=== PATIENT | female | born 1955 | race Two or more races ===

== ENCOUNTER 2024-11-22 13:31 | Outpatient (OUT) | payer MEDICARE, OTHER, SELFPAY ==
--- OUTSIDE RECORDS SUMMARY | 2024-11-22 13:38 | XMS_ITS | Clinical Summary ---
Author Organization [facility] Address [address] [place] [address] Phone Care Team Providers Care Recruitment Internship Name Role Phone June, Kishan Mcpherson MD Primary Care Provid er Social History Tobacco Use Types Packs/Day Years Used Date Smoking Tobacco: Never Assessed Comments Unknown Sex and Gender Information Value Date Recorded Sex Assigned at Not on file Legal Sex Female 5:54 PM EST Gender Identity Not on file Sexual Orientation Not on file Plan of Treatment Not on file Care Teams Recruitment Internship Relationship Specialty Start Date End Date June, Kishan Mcpherson MD [address] [place] [address] PCP - General 01/31/10
--- OUTSIDE RECORDS SUMMARY | 2024-11-22 13:38 | XMS_ITS | Encounter Summary ---
Author Organization [facility] Address [address] [place] [address] Care Team Providers Care Elevator Starter Name Role Phone Kathy Zimmerman DO Primary Care Provider [phone] Encounter Details Date Type Department Care Team (Late st Contact Info) Description 03/07/2024 Orders Only [facility] [address] [id number] Grant Parada DO [address] [address] Social History Tobacco Use Types Packs/Day Years Used Date Smoking Tobacco: Never Assessed Comments Unknown Sex and Gender Information Value Date Recorded Sex Assigned at Not on file Legal Sex Female 6:44 PM EDT Gender Identity Female 04/30/2022 6:44 PM EDT Sexual Orientation Not on file documented as of this encounter Plan of Treatment Not on file documented as of this encounter Procedures Procedure Name Priority Date/Time Associated Diagnosis Comments CT ABDOMEN & PELVIS WO Routine 03/07/2024 11:49 AM EST documented in this encounter Results * CT ABDOMEN & PELVIS WO (03/07/2024 11:49 AM EST) Anatomical Region Laterality Modality Radiographic Trudy ging Grant Parada DO IMG XR PROCEDURES Final Result documented in this encounter Visit Diagnoses Not on filedocumented in this encounter Care Teams Elevator Starter Relationship Specialty Start Date End Date Kathy Zimmerman DO PCP - General Family Medicine 02/22/24 documented as of this encounter
--- NOTE | 2024-11-22 14:00 | CA_ITS ---
Patient Name: DUSTY BROWN MR#: [id number] : 1955 Exam Date: 11/22/2024 Ordering Doctor: EDITH SUN ECHOCARDIOGRAM REPORT PROCEDURE: CA ECHO DOPPLER COMPLETE INDICATIONS: Bradycardia, fatigue, h/o breast cancer - mastectomy, chemotherapy and radiation COMPARISON: None. DESCRIPTION: COMPLETE ECHOCARDIOGRAM Real-time transthoracic echocardiography with 2D, M-mode, spectral and color flow Doppler performed. QUALITY: Technical quality was good. LEFT VENTRICLE: Normal chamber size. Normal left ventricular wall thickness. Normal systolic function. Estimated left ventricular ejection fraction is 55-60% LV EF: Normal left ventricular ejection fraction, (>55%). DIASTOLIC: Normal diastolic function. ATRIAL SEPTUM: Visually appears intact. LEFT ATRIUM: Mild dilatation. RIGHT ATRIUM: Normal chamber size. RIGHT VENTRICLE: Normal chamber size. Normal right ventricular systolic function. TRICUSPID VALVE: Normal mobility and thickness. No stenosis with trivial regurgitation. No evidence of pulmonary hypertension. RVSP 31 mmHg MITRAL VALVE: Normal mobility and thickness. No evidence of mitral valve stenosis. There is no mitral annular calcification. Mild mitral regurgitation. AORTIC VALVE: Normal trileaflet appearance. Normal leaflet mobility. No evidence of aortic valve stenosis. No aortic regurgitation. AORTIC ROOT: Normal diameter and appearance. PULMONIC VALVE: Normal thickness and mobility. No stenosis. Mild regurgitation. PERICARDIUM: No evidence of pericardial effusion. IVC: Collapses with inspiration. PLEURA: CONCLUSION: 1. Normal ventricular size and systolic function. LVEF is estimated at 55 to 60%. 2. Normal diastolic function. 3. Mild mitral and pulmonic regurgitation. 4. Normal right-sided pressures. Adult Echocardiography Procedure Report Left Ventricle LVEDD (3.7 - 5.6 cm): 4.25 cm LVESD (2.2 - 4.0 cm): 2.99 cm LVIVS thickness (0.6 - 1.2 cm): 0.74 cm LVPW thickness (0.5 - 1.0 cm): 0.60 cm e': 0.10 m/s E - e': 9.06 LVOT Max Gradient: 3.41 mm[Hg] LVOT Area (cm2): 0.92 m/s Peak Velocity (LVOT): 0.92 m/s Mean Velocity (LVOT): 0.53 m/s LVOT Diameter 1.74 cm Left Ventricular Ejection Fraction: 55-60 % Left Atrium LA Volume Index (2D A2C): 32.72 ml/m2 Left Atrium Systolic Dimension: 3.39 cm Mitral Valve MV E to A Ratio: 1.37 Mitral Valve A-Wave Peak Velocity: 0.64 m/s Mitral Valve E-Wave Peak Velocity: 0.88 m/s Right Ventricle Aorta AO Root Diam: 2.41 cm Aortic Valve AoV Area (Peak Ryan): 2.02 cm2, 2.02 cm2 AoV Area (VTI): 1.96 cm2, 1.96 cm2 Peak Velocity(Antegrade Flow): 1.09 m/s Peak Gradient(Antegrade Flow): 4.74 mm[Hg] Mean Velocity(Antegrade Flow): 0.67 m/s Mean Gradient(Antegrade Flow): 2.15 mm[Hg] Velocity Time Integral: 25.57 cm Tricuspid Valve Peak Velocity (Regurgitant Flow): 2.65 m/s Pulmonic Valve Peak Velocity: 0.89 m/s Peak Gradient: 3.17 mm[Hg] Right Atrium Right Atrium Systolic Pressure: 16.10 ml, 16.10 ml Dictated by: Garrett Stephens M.D. on 11/22/2024 at 17:40 Approved by: Garrett Stephens M.D. on 11/22/2024 at 17:44
== END 2024-11-22 13:32 | disposition home or self-care (01) ==
LOC: CARD 13:35
DX: R00.1 Bradycardia, unspecified (principal); R53.83 Other fatigue; E03.9 Hypothyroidism, unspecified
CPT/HCPCS: 93306